=== PATIENT | female | born 1985 | race Two or more races ===

== ENCOUNTER 2022-06-06 10:38 | Inpatient (IN) | payer MEDICAID, OTHER ==
[~2022-06-06] VITALS: Ht 160 cm; Wt 86.2 kg
[2022-06-06 13:07] LABS: Hematocrit 18.5 % (36.0-46.0); Mean Corpuscular Hgb Conc. 23.4 g/dL (32.0-36.0); Red Blood Cells 3.89 10^6/uL (4.0-5.20)
[2022-06-06 13:10] LABS: Mean Corpuscular Hemoglobin 11.1 pg (28.0-32.0); Mean Corpuscular Volume 47.5 fL (80.0-100.0); White Blood Cell 4.2 10^3/uL (4.4-10.8)
[2022-06-06 13:17] LABS: Hemoglobin 4.3 g/dL (12.2-16.2); Red Cell Distribution Width 23.5 % (11.8-14.3)
[2022-06-06 13:18] LABS: Basophils % (manual) 0 (0.0-2.0); Blast Cells 0; Eosinophils % (manual) 0 (0-7); Metamyelocytes % 0; Myelocytes % 0; Promyelocytes % 0
[2022-06-06 13:45] LABS: Band Neutrophils % (manual) 2; Lymphocytes % (manual) 35 (10.0-50.0); Monocytes % (manual) 5 (0-12); Reactive Lymphocytes 6
[2022-06-06 14:26] LABS: Albumin 3.5 g/dL (3.4-5.0); BUN/Creatinine Ratio 22.9; Calcium 8.4 mg/dL (8.5-10.1); Potassium 3.7 mmol/L (3.5-5.1)
[2022-06-06 14:29] LABS: Bilirubin, Total 0.5 mg/dL (0.2-1.0); Total Protein 7.2 g/dL (6.4-8.2)
[2022-06-06 14:31] LABS: INR 1.39 (0.9-1.15)
[2022-06-06 15:36] LABS: Urine Bacteria NONE SEEN /hpf (None Seen); Urine Blood Negative /uL (Negative); Urine Mucus FEW (None Seen); Urine Specific Gravity 1.021 (1.001-1.035); Urine WBC 5 /hpf (0 - 5)
[2022-06-06 16:44] VITALS: BP 119/41
[2022-06-06 17:00] VITALS: BP 116/50
[2022-06-06 18:30] VITALS: BP 120/43
[2022-06-06 18:45] VITALS: BP 118/49
[2022-06-06] MEDS ORDERED: ACETAMINOPHEN 325 MG TAB PO PRN (18:45)
[2022-06-06] MEDS ORDERED: MORPHINE SULFATE INJ 2 MG/ml SYRG IV PRN (18:45)
[2022-06-06] MEDS ORDERED: ONDANSETRON HCL 4 MG/2 ML VIAL IV PRN (18:45)
[2022-06-06 19:05] VITALS: BP 114/57
[2022-06-06 20:25] VITALS: BP 118/54
[2022-06-06] MEDS: SODIUM CHLORIDE 0.9% 1,000 ML IV SCH (20:39)
[2022-06-07] MEDS: HYDROcodone-ACET 5/325MG TAB PO PRN ×3 (00:43→21:16)
[2022-06-07 06:49] LABS: Potassium 3.9 mmol/L (3.5-5.1)
[2022-06-07 06:54] LABS: Albumin 3.5 g/dL (3.4-5.0); BUN/Creatinine Ratio 16.3; Calcium 8.6 mg/dL (8.5-10.1); Mean Corpuscular Hemoglobin 14.4 pg (28.0-32.0); White Blood Cell 4.5 10^3/uL (4.4-10.8)
[2022-06-07 06:55] LABS: Hematocrit 25.1 % (36.0-46.0); Mean Corpuscular Hgb Conc. 26.4 g/dL (32.0-36.0); Mean Corpuscular Volume 54.5 fL (80.0-100.0)
[2022-06-07 07:01] LABS: Total Protein 6.7 g/dL (6.4-8.2)
[2022-06-07 07:07] LABS: Hemoglobin 6.6 g/dL (12.2-16.2)
[2022-06-07 07:09] LABS: Basophils % (manual) 0 (0.0-2.0); Blast Cells 0
[2022-06-07 09:01] LABS: Band Neutrophils % (manual) 3; Eosinophils % (manual) 1 (0-7); Lymphocytes % (manual) 30 (10.0-50.0); Metamyelocytes % 2; Monocytes % (manual) 6 (0-12); Myelocytes % 1; Promyelocytes % 1; Reactive Lymphocytes 16
[2022-06-07] MEDS: SODIUM CHLORIDE 0.9% 1,000 ML IV SCH (11:31)
[2022-06-07] MEDS ORDERED: IOHEXOL 350 MG/ML 100ML IJ ONE (15:11)
[2022-06-07 16:00] VITALS: BP 92/43
[2022-06-07 16:15] VITALS: BP 89/50
[2022-06-07 16:30] VITALS: BP 90/48
[2022-06-07 16:45] VITALS: BP 90/48
[2022-06-07 19:59] VITALS: BP 108/61
[2022-06-07 22:00] VITALS: BP 112/49
[2022-06-08] MEDS: SODIUM CHLORIDE 0.9% 1,000 ML IV SCH (04:05)
[2022-06-08 05:00] VITALS: BP 105/44
[2022-06-08 05:13] LABS: Hemoglobin 7.8 g/dL (12.2-16.2); Mean Corpuscular Hgb Conc. 27.7 g/dL (32.0-36.0)
[2022-06-08 05:21] LABS: Mean Corpuscular Volume 57.7 fL (80.0-100.0); Red Blood Cells 4.85 10^6/uL (4.0-5.20); White Blood Cell 4.9 10^3/uL (4.4-10.8)
[2022-06-08 06:47] LABS: Red Cell Distribution Width 40.4 % (11.8-14.3)
[2022-06-08 06:48] LABS: Basophils % (manual) 0 (0.0-2.0); Blast Cells 0; Metamyelocytes % 0; Myelocytes % 0; Promyelocytes % 0
[2022-06-08 08:00] VITALS: BP 100/60
[2022-06-08 08:21] LABS: Band Neutrophils % (manual) 2; Eosinophils % (manual) 3 (0-7); Lymphocytes % (manual) 62 (10.0-50.0); Monocytes % (manual) 2 (0-12); Reactive Lymphocytes 2
[2022-06-08 09:00] VITALS: BP 96/50
[2022-06-08] MEDS ORDERED: FER325T PO (12:50)
[2022-06-08] MEDS ORDERED: SENN-83 PO (12:50)
[2022-06-08] MEDS ORDERED: MULTTAB75 PO (12:50)
[2022-06-08 13:00] VITALS: BP 105/60
[2022-06-08 16:15] VITALS: BP 100/60
[2022-06-08 16:25] VITALS: BP 109/61
== END 2022-06-08 18:10 | disposition home or self-care (01) | DRG 663 ==
LOC: ER 10:38 → OVERFLOW 18:48 → WEST WING 06-07 19:34
PROVIDERS: ADMIT Internal Medicine; ATTEND Hospitalist
PROC: 30233N1 Transfusion of Nonautologous Red Blood Cells into Peripheral Vein, Percutaneous Approach (ICD-10-PCS; principal; 2022-06-06)
DX: D64.9 Anemia, unspecified (principal); E86.0 Dehydration; N92.0 Excessive and frequent menstruation with regular cycle; N94.6 Dysmenorrhea, unspecified; N83.202 Unspecified ovarian cyst, left side; K59.00 Constipation, unspecified; Z20.822 Contact with and (suspected) exposure to COVID-19; Z98.84 Bariatric surgery status; Z90.49 Acquired absence of other specified parts of digestive tract
CPT/HCPCS: 36415; 36430; 71045; 74177; 76830; 76856; 80053; 81001; 81025; 85007; 85027; 85610; 85730; 86850; 86900; 86901; 86920; 93005; 96360; 99291; G0378

== ENCOUNTER 2022-11-28 19:47 | Emergency (ER) | payer MEDICAID ==
[~2022-11-28] VITALS: Ht 162.6 cm; Wt 86.8 kg
[~2022-11-28 19:47] MED LIST: FER325T PO; MULTTAB75 PO; SENN-83 PO
[2022-11-28 21:27] LABS: Hemoglobin 8.4 g/dL (12.2-16.2)
[2022-11-28 21:29] LABS: Basophils # (auto) 0 10 ^3/uL (0-0.2); Basophils % (auto) 0.4 % (0.0-2.0); Eosinophils # (auto) 0.2 10 ^3/uL (0-0.8); Eosinophils % (auto) 1.9 % (0.0-7.0); Lymphocytes # (auto) 0.5 10 ^3/uL (0.4-5.4); Lymphocytes % (auto) 4.5 % (10.0-50.0); Mean Corpuscular Hemoglobin 17.6 pg (28.0-32.0); Mean Corpuscular Volume 60.5 fL (80.0-100.0); Monocytes # (auto) 0.8 10 ^3/uL (0-1.3); Monocytes % (auto) 7.2 % (0.0-12.0); Neutrophils # (auto) 10.2 10 ^3/uL (1.6-8.6); Red Blood Cells 4.79 10^6/uL (4.0-5.20); Red Cell Distribution Width 18.7 % (11.8-14.3); White Blood Cell 11.8 10^3/uL (4.4-10.8)
[2022-11-28] MEDS ORDERED: ONDANSETRON ODT 4 MG TAB PO ONE (21:30)
[2022-11-28] MEDS ORDERED: MAALOX PLUS or MAALOX 30 ML PO ONE (21:30)
[2022-11-28 21:58] LABS: Alanine Aminotransferase 24 U/L (13-56); Albumin 3.6 g/dL (3.4-5.0); Alkaline Phosphatase 60 U/L (45-117); Anion Gap 7 (5-15); Aspartate Aminotransferase 27 U/L (15-37); BUN/Creatinine Ratio 31.1; Bilirubin, Total 0.6 mg/dL (0.2-1.0); Blood Urea Nitrogen 19 mg/dL (7-18); Calcium 8.3 mg/dL (8.5-10.1); Carbon Dioxide 22 mmol/L (21-32); Chloride 108 mmol/L (98-107); GFR African American 142 mL/min; GFR Non-African American 117 mL/min; Glucose 130 mg/dL (74-106); Potassium 4.1 mmol/L (3.5-5.1); Sodium 137 mmol/L (136-145)
[2022-11-28 21:59] LABS: Lipase 130 U/L (73-393)
[2022-11-28 22:21] LABS: Urine Bacteria NONE SEEN /hpf (None Seen); Urine Blood Negative /uL (Negative); Urine Mucus FEW (None Seen); Urine Specific Gravity 1.039 (1.001-1.035); Urine WBC 139 /hpf (0 - 5); Urine WBC Clumps PRESENT /hpf (None Seen)
[2022-11-28] MEDS ORDERED: ONDA-144 PO (23:44)
[2022-11-28] MEDS ORDERED: OMEP-434 PO (23:44)
[2022-11-29 00:29] VITALS: BP 104/58
== END 2022-11-29 00:31 | disposition home or self-care (01) ==
LOC: ER 19:47
DX: K29.70 Gastritis, unspecified, without bleeding (principal); K21.9 Gastro-esophageal reflux disease without esophagitis; Z32.02 Encounter for pregnancy test, result negative
CPT/HCPCS: 36415; 74176; 80053; 81001; 81025; 83690; 85025; 99284; Q0162